=== PATIENT | female | born 1940 | race Caucasian/White ===

== ENCOUNTER 2022-02-05 15:29 | Observation (INO) ==
[2022-02-06] MEDS ORDERED: Ondansetron 4 MG/2 ML VIAL IVP PRN (01:47)
[2022-02-06] MEDS ORDERED: Melatonin 3 MG TABLET PO PRN (01:47)
[2022-02-06] MEDS ORDERED: Naloxone 0.4 MG/ML INJ IVP PRN (01:47)
[2022-02-06] MEDS ORDERED: Dextrose 4 GM Chewable Tablets PO PRN ×2 (01:50)
[2022-02-06] MEDS ORDERED: *HR* Dextrose 50 % in Water (Syg) 50 ML SYRINGE IVP PRN (01:50)
[2022-02-06] MEDS ORDERED: D5% in Water 1,000 ML IVC PRN (01:50)
[2022-02-06 02:17] LABS: Eosinophils % 0.5 %; Hematocrit 26.4 % (35.3-44.9)
[2022-02-06 02:18] LABS: Basophils % 0.3 %; Eosinophils # 0.1 K/mcL (0.0-0.6); Hemoglobin 7.5 g/dL (11.5-15.4); Immature Granulocytes % 0.3 % (0-4); Lymphocytes # 4.9 K/mcL (0.6-4.6); Lymphocytes % 41.5 %; Mean Corpuscular HGB Conc 28.4 g/dL (31.6-35.5); Mean Corpuscular Hemoglobin 19.4 pg (28.0-33.3); Mean Corpuscular Volume 68.4 fL (83.0-100.0); Mean Platelet Volume 9.8 fL (9.4-12.4); Monocytes # 1.1 K/mcL (0.0-1.3); Monocytes % 9.1 %; Neutrophils # 5.7 K/mcL (1.6-8.9); Platelet Count 459 K/mcL (140-400); Red Blood Count 3.86 M/mcL (3.82-4.97); Red Cell Distribution Width 21.8 % (11.5-14.5); Segmented Neutrophils % 48.3 %; White Blood Count 11.8 K/mcL (4.3-11.1)
[2022-02-06 02:22] LABS: INR 1.2; Prothrombin Time 13.7 Seconds (9.4-12.1)
[2022-02-06 02:46] LABS: Anisocytosis 2+ (Not Present); Hypochromasia Present (Not Present); Microcytosis Present (Not Present); Platelet Estimate Increased (Normal)
[2022-02-06 02:53] LABS: BUN/Creatinine Ratio 21 (6-26); Blood Urea Nitrogen 17 mg/dL (8-23); Calcium 9.4 mg/dL (8.6-10.3); Carbon Dioxide 23 mEq/L (23-29); Chloride 103 mEq/L (98-107); Glucose 146 mg/dL (70-105); Magnesium 1.9 mg/dL (1.6-2.6); Osmolality,Calculated 284 (280-300); Potassium 4.6 mEq/L (3.5-5.1); Sodium 135 mEq/L (136-145); eGFR For African Americans > 60 (> 60); eGFR For Non-African Americans > 60 (> 60)
[2022-02-06] MEDS: Acetaminophen 325 MG TABLET PO PRN ×2 (05:06→21:52)
[2022-02-06] MEDS: Pantoprazole 40 MG VIAL IVP SCH ×2 (05:07→17:28)
[2022-02-06] MEDS: Insulin LISPRO 300 UNITS/3 ML VIAL SUBQ SCH ×3 (05:31→18:12)
[2022-02-06 09:21] LABS: Hematocrit 26.7 % (35.3-44.9); Hemoglobin 7.4 g/dL (11.5-15.4)
[2022-02-06 15:12] LABS: Hematocrit 28.1 % (35.3-44.9); Hemoglobin 7.8 g/dL (11.5-15.4)
[2022-02-06] MEDS: Gabapentin 300 MG CAPSULE PO SCH ×2 (15:18→21:52)
[2022-02-06] MEDS ORDERED: SODIUM CHLORIDE/NAHCO3/KCL/PEG 4,000 ML SOLN.RECON PO ONE (17:00)
[2022-02-06 20:24] LABS: Hematocrit 31.9 % (35.3-44.9); Hemoglobin 8.9 g/dL (11.5-15.4)
[2022-02-06] MEDS: lisinopriL 10 MG TABLET PO SCH (21:52)
[2022-02-07] MEDS: Insulin LISPRO 300 UNITS/3 ML VIAL SUBQ SCH ×3 (02:10→12:40)
[2022-02-07] MEDS: Pantoprazole 40 MG VIAL IVP SCH (06:45)
[2022-02-07] MEDS: Gabapentin 300 MG CAPSULE PO SCH ×2 (08:47→14:57)
[2022-02-07] MEDS: lisinopriL 10 MG TABLET PO SCH (08:48)
[2022-02-07] MEDS ORDERED: Cholecalciferol (D-3) 1,000 UNIT (25MCG) TABLET PO SCH (09:00)
[2022-02-07] MEDS ORDERED: Metoprolol XL (24 HR) Succ 50 MG TAB.ER.24H PO SCH (09:00)
[2022-02-07] MEDS ORDERED: CYANOCOBALAMIN 50 MCG PO SCH (09:00)
[2022-02-07] MEDS ORDERED: *HR* Propofol 200 MG/20 ML VIAL IVP ONE ×2 (13:15→14:05)
[2022-02-07] MEDS ORDERED: Lidocaine -MPF 2% 2 ML VIAL ONE (13:19)
[2022-02-07 15:14] VITALS: BP 155/68; PULSE 63; TEMP 97.6; O2SAT 95
[2022-02-07 15:17] LABS: Hematocrit 26.4 % (35.3-44.9); Hemoglobin 7.3 g/dL (11.5-15.4); Immature Platelets 4.8 % (1.1-6.1); Mean Corpuscular HGB Conc 27.7 g/dL (31.6-35.5); Mean Corpuscular Hemoglobin 19.1 pg (28.0-33.3); Mean Corpuscular Volume 69.1 fL (83.0-100.0); Mean Platelet Volume 10.2 fL (9.4-12.4); Red Blood Count 3.82 M/mcL (3.82-4.97); Red Cell Distribution Width 22.4 % (11.5-14.5); White Blood Count 10.6 K/mcL (4.3-11.1)
== END 2022-02-07 18:20 | disposition home or self-care (01) ==
LOC: 2ANU → SUATTDRO 02-06 01:16
PROVIDERS: ADMIT Internal Medicine; ATTEND Internal Medicine
PROC: ENDOEDS (2022-02-07 13:00)